=== PATIENT | female | born 1975 | race Caucasian/White ===

== ENCOUNTER 2022-07-28 14:00 | Emergency (ER) | payer OTHER, SELFPAY ==
--- NOTE | 2022-07-29 11:00 | ED.GENADUL_ITS ---
Discharge Plan Disposition Patient Disposition: Home Discharge Details Clinical Impression: Pain, dental Primary Care Provider: Vickie,Local ED Provider: Magaly Hoang Home Meds and New Rx's Prescriptions: New penicillin V potassium 500 mg tablet 500 mg PO Q6H 10 Days Qty: 40 0RF Discharge Instructions Instructions: Toothache (ED) Additional Instructions: Take antibiotic as prescribed motrin/tylenol for pain be reevaluated with facial swelling, fever, worsening pain, difficulty opening jaw Discharge Data Discharge Date/Time-TO BE ENTERED AT DEPARTURE: 07/28/22 15:13 Medical Decision Making Patient appears well, there is no visible facial swelling or evidence of Joseph's angina I will place patient on penicillin and refer her back to her surgeon Careful return precautions reviewed, she will take ibuprofen and Tylenol as needed pain I dental block was offered, patient has declined HPI General Date/Time Provider Initiated Documentation: 07/28/22 14:19 . HPI Narrative: This 47-year-old female presents with report of root canal and see right upper tooth on Friday. Pain started Friday and has worsened since that time. Does not have fever or difficulty swallowing. Is visiting from [place] per patient. Returning on Friday. Denies any chest pain or shortness of breath. Related Data Home Medications Medication Instructions Recorded Confirmed penicillin V potassium 500 mg 500 mg PO Q6H 10 days #40 tabs 07/28/22 tablet Previous Rx's Medication Instructions Recorded penicillin V potassium 500 mg 500 mg PO Q6H 10 days #40 tabs 07/28/22 tablet General Stated Complaint: DentalOral SAMUEL: 4 PFSH All Active Problems (Updated 07/28/22 @ 14:51 by HALEY Mancuso) Pain, dental (Acute) Social History Smoking/Tobacco Use Status: Never Smoking risk assessment performed?: Yes Alcohol Intake: never Substance use type: does not use Do you feel safe at home: Yes Do you feel safe in your relationship?: Yes Exam Narrative Exam Narrative: Patient appears well, there is a tooth, #1 that has been extracted, there is no visible drainage or facial swelling, there is no soft palate induration, uvula is mildly midline, there is no trismus Course Vital Signs Vital signs: Respiratory Effort Normal, Non-Labored 07/28/22 14:07
== END 2022-07-28 15:13 | disposition home or self-care (01) ==
PROVIDERS: Emergency Provider Physician Assistant
DX: K08.89 Other specified disorders of teeth and supporting structures (principal)
CPT/HCPCS: 99283; 99284